=== PATIENT | female | born 1995 | race Caucasian/White ===

== ENCOUNTER 2017-05-26 08:37 | Day surgery (SDC) | payer OTHER ==
[~2017-05-26] VITALS: Ht 162.6 cm; Wt 50.8 kg
[~2017-05-26 08:37] MED LIST: 0.9% Sodium Chloride 1,000 ML IV SCH; ESCI10TA3 PO; GABA-504 PO; SUCR1ORA PO; Sodium Chloride LOK Flush 10 mL Syringe IV PRN; TRAZ-115 PO; fentaNYL-PF 50 mCg/mL 2 mL Inj IVPUSH PRN
[2017-05-26 09:05] VITALS: BP 108/66; PULSE 50; RESP 16; O2SAT 100
[2017-05-26 10:01] VITALS: BP 108/57; PULSE 57; RESP 16; O2SAT 100
[2017-05-26 10:11] VITALS: BP 100/53; PULSE 49; RESP 16; O2SAT 99
[2017-05-26 10:21] VITALS: BP 106/60; PULSE 52; RESP 16; O2SAT 100
--- NOTE | 2017-05-26 10:22 | ENDO ---
[address] [address] ENDOSCOPY PROCEDURE PATIENT: DEAN CHAU : 1995 MR#: [id number] ADMIT: 05/26/2017 JOB ID: [id number] DATE OF SERVICE: 05/26/2017 TYPE OF OPERATION: Colonoscopy. PREOPERATIVE DIAGNOSIS: Constipation. POSTOPERATIVE DIAGNOSIS: Normal colonoscopy. ANESTHESIA: Fentanyl 100 mcg, Versed 4 mg IV administered. COMPLICATIONS: None. BLOOD LOSS: Minimal. DESCRIPTION OF PROCEDURE: After risks and benefits were explained to the patient, informed consent was obtained. After anesthesia administered, a colonoscope was then inserted from rectum to cecum. Mucosa carefully examined. Prep of the patient was fair. After the procedure was done, the scope withdrawn and procedure terminated. FINDINGS: Upon inspection of the anus, no masses, hemorrhoids, ulcers, or fissures that were seen. Throughout the entire examination no polyps, masses, or lesions. Retroflexion was normal. IMPRESSIONS: Normal colonoscopy. RECOMMENDATIONS: High-fiber diet. Follow up with referring provider as needed.
== END 2017-05-26 23:59 | disposition home or self-care (01) ==
LOC: END 08:37
PROVIDERS: ATTEND Internal Medicine Gastroenterology
DX: K59.00 Constipation, unspecified (principal); M54.30 Sciatica, unspecified side; F41.9 Anxiety disorder, unspecified; F32.9 Major depressive disorder, single episode, unspecified; F17.210 Nicotine dependence, cigarettes, uncomplicated
CPT/HCPCS: 45378; G0500; J2250; J3010; J7030

== ENCOUNTER 2017-07-07 20:42 | Emergency (ER) | payer OTHER ==
[~2017-07-07] VITALS: Ht 162.6 cm; Wt 50.9 kg
[~2017-07-07 20:42] MED LIST changes: -0.9% Sodium Chloride 1,000 ML IV SCH; -Sodium Chloride LOK Flush 10 mL Syringe IV PRN; -fentaNYL-PF 50 mCg/mL 2 mL Inj IVPUSH PRN
[2017-07-07 20:57] VITALS: BP 109/68; PULSE 80; RESP 16; O2SAT 98
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
[2017-07-07] MEDS ORDERED: Lidocaine 4% 4 mL Laryng-O-Jet Top Soln MUC_MEMBRM ONE (23:40)
[2017-07-07] MEDS ORDERED: Nitroglycerin 2% 1 Gm Ointment TOPICAL ONE (23:45)
[2017-07-08] MEDS ORDERED: Lidocaine 2% 6mL Topical Jelly ONE (00:08)
[2017-07-08] MEDS ORDERED: Lidocaine 2% 5 mL Urojet Topical Jelly Syringe MUC_MEMBRM ONE (00:10)
[2017-07-08] MEDS ORDERED: Lidocaine 2% 6mL Topical Jelly MUC_MEMBRM ONE ×2 (00:10)
[2017-07-08 00:14] VITALS: BP 106/62; PULSE 62; RESP 18; O2SAT 98
== END 2017-07-08 00:15 | disposition home or self-care (01) ==
LOC: SED 20:42
DX: K60.2 Anal fissure, unspecified (principal); K62.5 Hemorrhage of anus and rectum; Z88.0 Allergy status to penicillin
CPT/HCPCS: 99283; G0463